=== PATIENT | male | born 1955 | race Caucasian/White ===

== ENCOUNTER 2019-06-11 05:57 | Inpatient (IN) ==
--- NOTE | 2019-05-26 16:01 | PAT Medication Instructions ---
Medication Instructions Date of Service May 26, 2019 Home Medications cholecalciferol (vitamin D3) [Vitamin D3] 10,000 unit PO BID glucos sul 5UYi-muj-upkve-C-Mn [Glucosamine Chondroitin] 3 cap PO DAILY ibuprofen 400 mg PO Q6H PRN gsnzq-fk-6-uly-wkk-fdsqhrp-ast [krill oil] 1 cap PO BID losartan [Cozaar] 100 mg PO QAM turmeric root extract 500 mg PO HS ASK your surgeon for instructions ibuprofen 400 mg PO Q6H PRN STOP taking 2 weeks before surgery glucos sul 8CCp-vdi-umuvp-C-Mn [Glucosamine Chondroitin] 3 cap PO DAILY bjodx-bd-4-ccc-dte-nkoydwm-ast [krill oil] 1 cap PO BID turmeric root extract 500 mg PO HS DO NOT take the morning of surgery cholecalciferol (vitamin D3) [Vitamin D3] 10,000 unit PO BID losartan [Cozaar] 100 mg PO QAM Other Notes If you have any questions please call us at [phone] or [phone] or [phone] or [phone]
--- NOTE | 2019-05-27 11:15 | Anesthesiology Consultation ---
Date of Service May 27, 2019 Assessment & Plan (1) Encounter for pre-operative examination: Chart Review Chart Review: Acceptable Risk for Surgery and Patient seen in Pre Admission Testing Teaching & Discussion Instructed NPO after midnight before surgery, except medications with 15 cc of water. Medication instructions provided according to the PAT guidelines. History Surgery Operation Date: 06/11/19 10:25 Proposed Procedures p L4-S1 Decompression and Fusion, Spinal Cord Monitoring - Kermit Nolan, Height/Weight Height: 5 ft 11 in Weight: 90.4 kg Allergies Allergy/AdvReac Type Severity Reaction Status Date / Time cefuroxime [From Ceftin] Allergy Mild LIPS TINGLE Verified 05/21/19 14:13 Medications Home Medications Medication Instructions Recorded Confirmed Last Taken cholecalciferol (vitamin D3) 10,000 unit PO BID 05/21/19 05/21/19 Unknown [Vitamin D3] glucos sul 0OFx-hxv-opjmp-C-Mn 3 cap PO DAILY 05/21/19 05/21/19 Unknown [Glucosamine Chondroitin] ibuprofen 400 mg PO Q6H PRN 05/21/19 05/21/19 Unknown lvijz-xg-6-lhr-qwv-npnhjuu-ast 1 cap PO BID 05/21/19 05/21/19 Unknown [krill oil] losartan [Cozaar] 100 mg PO QAM 05/21/19 05/21/19 Unknown turmeric root extract 500 mg PO HS 05/21/19 05/21/19 Unknown Past Medical History Medical History Chronic back pain TO BACK LEGS BILAT GERD (gastroesophageal reflux disease) HX Hypertension Exercise / Class Metabolic Activity II 4-5 Yardwork/Stairs/Walk up hill Past Family History Family History Father Family history of diabetes mellitus Family hx of colon cancer Past Surgical History Surgical History History of cardiac cath X 2-LAST ONE 10 YRS AGO-NO STENTS NEEDED History of colonoscopy X MULTIPLE History of esophagogastroduodenoscopy (EGD) History of repair of rotator cuff Hx of shoulder surgery R/L Past Anesthesia History No Hx of Anesthesia Complications and No Family Hx of Anesthesia Complications History of PONV No Hx of PONV and No Hx of Motion Sickness Social History Smoking Status: Former smoker Smoking cigarettes per day: Quit 20+ years ago Do You Dip or Chew Tobacco: No Hx Alcohol Use: Yes Alcohol type: beer and hard liquor alcohol intake frequency: a few times a week Hx Substance Use: No Review of Systems Pt denies any recent chest pain, shortness of breath, palpitations, cough, fever or URI. +Post nasal drip/sinus congestion, on Doxycycline currently from PCP. Denies travel. Physical Exam Vital Signs BP: 152/96 (pt states usually 130s/80s, takes it at home routinely) P: 76bpm SPO2: 98% RA T: 98.6 F R: 18 ENMT Mouth: + dental restorations (upper R side crown); no chipped teeth and no loose teeth Thyromental Distance: < 3.5 Finger Breadths (3) Mallampati Class: I Neck normal visual inspection and + facial hair (short full rose, pt amenable to shaving prior to surgery); neck extension not limited Respiratory normal respiratory effort Auscultation: lungs clear to auscultation bilaterally Cardiovascular Rate/Rhythm: regular rate and regular rhythm Heart Sounds: no murmur Vessels: no carotid bruit Extremities: no edema Testing Laboratory Results 05/27/19 11:25 05/27/19 11:25 PT 10.6 Seconds (9.0-12.0) 05/27/19 11:25 INR 1.0 (0.9-1.1) 05/27/19 11:25 APTT 28.5 Seconds (21.0-31.0) 05/27/19 11:25 Urine Color Yellow 05/27/19 Unknown Urine Appearance Clear (Clear) 05/27/19 Unknown Urine pH 5.0 (4.5-7.5) 05/27/19 Unknown Ur Specific [place] 1.017 (1.000-1.030) 05/27/19 Unknown Urine Protein Negative (Negative) 05/27/19 Unknown Urine Glucose (UA) Negative (Negative) 05/27/19 Unknown Urine Ketones Negative (Negative) 05/27/19 Unknown Urine Nitrite Negative (Negative) 05/27/19 Unknown Ur Leukocyte Esterase Negative (Negative) 05/27/19 Unknown Blood Type A Positive 05/27/19 11:25 Antibody Screen NEGATIVE 05/27/19 11:25 Electrocardiogram Date: 05/27/19 Findings: + NSR @ (69bpm) Chest X-Ray Date: 05/27/19 Findings: + NAD
--- NOTE | 2019-05-27 12:05 | XRay Report ---
XR chest Pre-admission PA/Lat CLINICAL HISTORY: pat preoperative COMPARISON STUDY: No previous studies for comparison. FINDINGS: The bones soft tissues and hemidiaphragms are normal. The cardiomediastinal silhouette is n ormal. The lungs are clear. The pulmonary vasculature is normal. IMPRESSION: Negative chest. ACT 112: Negative or not required by law. The above report was generated using voice recognition software. It may contain grammatical, syntax or spelling errors. Electronically signed by: Jose Faith M.D. 05/27/2019 12:03 PM
[2019-05-27 12:32] LABS: Appearance Urine Clear (Clear); Bilirubin Urine Negative (Negative); Blood Urine Negative (Negative); Color Urine Yellow; Glucose Urine UA Negative (Negative); Ketones Urine Negative (Negative); Leukocyte Esterase Urine Negative (Negative); Nitrite Urine Negative (Negative); Protein Urine Negative (Negative); Specific Gravity Urine 1.017 (1.000-1.030); Urobilinogen Urine Negative (Negative)
[2019-05-27 12:35] LABS: Basophils # (auto) 0.04 K/uL (0-0.2); Basophils % (auto) 0.6 %; Eosinophils # (auto) 0.14 K/uL (0-0.5); Eosinophils % (auto) 2.1 %; Hematocrit (blood only) 45.6 % (42-52); Hemoglobin 15.6 g/dL (14.0-18.0); Immature Granulocytes # (auto) 0.03 K/uL (0.00-0.02); Immature Granulocytes % (auto) 0.4 %; Lymphocytes # (auto) 2.11 K/uL (1.2-3.4); Lymphocytes % (auto) 31.5 %; Mean Corpuscular Hgb Conc 34.2 g/dL (32-36); Mean Corpuscular Volume 93.4 fL (80-100); Monocytes # (auto) 0.92 K/uL (0.11-0.59); Monocytes % (auto) 13.8 %; Neutrophils # (auto) 3.45 K/uL (1.4-6.5); Neutrophils % (auto) 51.6 %; Platelet Count 188 K/uL (130-400); RDW Coefficient of Variation 12.9 % (11.5-14.5); Red Blood Count 4.88 M/uL (4.7-6.1); White Blood Count 6.69 K/uL (4.8-10.8)
[2019-05-27 12:45] LABS: Partial Thromboplastin Time 28.5 Seconds (21.0-31.0); Prothrombin Time 10.6 Seconds (9.0-12.0)
[2019-05-27 12:48] LABS: BUN Creatinine Ratio 12.4 (10-20); Calcium 9.6 mg/dl (8.5-10.1); Creatinine Clr Calc Pharmacy 104.8 ml/min; Est GFR (African American) 108.5; Est GFR (Non-African American) 93.6; Potassium 4.3 mmol/L (3.5-5.1)
--- NOTE | 2019-05-28 07:11 | Electrocardiogram Report ---
Test Reason : Blood Pressure : / mmHG Vent. Rate : 069 BPM Atrial Rate : 069 BPM P-R Int : 154 ms QRS Dur : 094 ms QT Int : 390 ms P-R-T Axes : 062 -13 041 degrees QTc Int : 417 ms Normal sinus rhythm Normal ECG No previous ECGs available Confirmed by Leopoldo Arnold ([id number]) on 05/28/2019 7:11:33 AM Referred By: Kermit Nolan Confirmed By:Leopoldo Arnold
--- NOTE | 2019-06-09 09:01 | History & Physical Report ---
Date of Service June 09, 2019 Assessment & Plan (1) Neurogenic claudication due to lumbar spinal stenosis: This time the patient is a combination of previously existing degenerative lumbar spinal stenosis with now acute far lateral disc herniation. This as created significant neurologic decline with progressive weakness affecting the lower extremities. In light of his weakness we are recommending urgent decompression and fusion at the L4-5 L5-S1 levels. Hopefully surgery will halt his progressive neurologic decline and with time allow him to rebuild his strength and function thus avoiding long-term sequela. Present on Admission?: Yes History of Present Illness Chief Complaint: Back and bilateral leg pain and weakness. Primary Care Provider: Adolfo Bedoya This is a 64-year-old male presents with above-mentioned complaint. Began after a fall of last year. Is undergone extensive course of nonoperative care including several injections and physical therapy unfortunately he has noted continued progressive decline in status with inability to stand and ambulate. The pain does awaken him from sleep. Allergies Allergy/AdvReac Type Severity Reaction Status Date / Time cefuroxime [From Ceftin] Allergy Mild LIPS TINGLE Verified 05/21/19 14:13 Home Medications Home Medications Medication Instructions Recorded Confirmed Type cholecalciferol (vitamin D3) 10,000 unit PO BID 05/21/19 05/21/19 History [Vitamin D3] glucos sul 5JOg-jnr-puzfe-C-Mn 3 cap PO DAILY 05/21/19 05/21/19 History [Glucosamine Chondroitin] ibuprofen 400 mg PO Q6H PRN 05/21/19 05/21/19 History gncet-ub-5-zhd-igg-acuzmof-ast 1 cap PO BID 05/21/19 05/21/19 History [krill oil] losartan [Cozaar] 100 mg PO QAM 05/21/19 05/21/19 History turmeric root extract 500 mg PO HS 05/21/19 05/21/19 History Past Med/Surg History Medical History Chronic back pain TO BACK LEGS BILAT GERD (gastroesophageal reflux disease) HX Hypertension Surgical History History of cardiac cath X 2-LAST ONE 10 YRS AGO-NO STENTS NEEDED History of colonoscopy X MULTIPLE History of esophagogastroduodenoscopy (EGD) History of repair of rotator cuff Hx of shoulder surgery R/L Family History Father Family history of diabetes mellitus Family hx of colon cancer Social History Preferred Language: Estonian Communication Ability: Effective Geospatial Intelligence Analyst Required: No Beliefs That Will Affect Care: None Current Living Situation: Spouse Other Information That Helps Us Care for You: No Feels Safe at Home: Yes Safety Concerns: Feels Safe At This Time Smoking Status: Former smoker Cigarettes Per Day: Quit 20+ years ago ; Do You Dip or Chew Tobacco: No ; Second Hand Exposure: Yes (FATHER SMOKED) ; Hx Alcohol Use: Yes Alcohol type: beer and hard liquor Hx Substance Use: No Physical Exam Physical Exam: On exam patient is in obvious distress. He is able to stand for me with assistance only. He exhibits a 4/5 bilateral quadriceps plantar flexion dorsiflexion sensory is intact on the left lower extremity markedly diminished on the right. Results & Data Diagnostic Findings MRI lumbar spine does demonstrate evidence of severe spinal stenosis in the form of neuroforaminal disease at L4-5 and the right at L5-S1 with a comet far lateral disc herniation.
[~2019-06-11 05:57] MED LIST: SODIUM CHLORIDE 0.9% 250 ML IV PRN
[2019-06-11] MEDS ORDERED: ACETAMINOPHEN 500 MG TAB PO SCH (06:00)
[2019-06-11] MEDS ORDERED: LR 15ML/HR IV SCH (06:00)
[2019-06-11] MEDS ORDERED: CEFAZOLIN 2000MG 2,000 MG/15 ML SYR IV SCH (06:00)
[2019-06-11] MEDS ORDERED: CLINDAMYCIN 600 MG/54 ML BAG IV SCH (06:00)
[2019-06-11] MEDS ORDERED: CeleBREX 200 MG CAP PO SCH (06:00)
[2019-06-11] MEDS ORDERED: GABAPENTIN 600 MG DOSE PO SCH (06:00)
[2019-06-11] MEDS ORDERED: ONDANSETRON INJ 2 MG/ML 2 ML VIAL IV PRN ×2 (07:08→11:20)
[2019-06-11] MEDS ORDERED: ATROPINE SULFATE 0.1 MG/ML 10ML SYR IV PRN (07:08)
[2019-06-11] MEDS ORDERED: MEPERIDINE HCL 25 MG/ML CARP/VIAL IV PRN (07:08)
[2019-06-11] MEDS ORDERED: ePHEDrine sulfate 50 MG/ML AMP IV PRN (07:08)
[2019-06-11] MEDS ORDERED: HYDROmorphone INJ 1 MG/ML SYRINGE IV PRN ×2 (07:08→11:20)
[2019-06-11] MEDS ORDERED: LABETALOL HCL IV 5 MG/ML 20ML IV PRN (07:08)
[2019-06-11] MEDS ORDERED: fentaNYL citrate 100 MCG/2 ML VIAL IV PRN (07:08)
[2019-06-11] MEDS ORDERED: PHENYLEPHRINE 100MCG/ML 5ML SYR IV PRN (07:08)
[2019-06-11] MEDS ORDERED: fentaNYL citrate 100 MCG/2 ML VIAL ONE (07:11)
[2019-06-11] MEDS ORDERED: MIDAZOLAM HCL 1 MG/ML 2ML VIAL ONE (07:11)
[2019-06-11] MEDS ORDERED: BUPIVACAINE/EPINEPHRINE 0.5% MPF 1:200,000 10 ML VIAL ONE (07:11)
[2019-06-11] MEDS ORDERED: HYDROmorphone INJ 2 MG/ML SYR/VIAL ONE (07:11)
[2019-06-11] MEDS ORDERED: BACITRACIN INJ 50,000 UNIT VIAL ONE (07:12)
--- NOTE | 2019-06-11 07:29 | History & Physical Bridge Note ---
Date of Service June 11, 2019 History & Physical Bridge Note I have examined the patient, reviewed the History & Physical and in the interval since the performance of the History & Physical I have noted the following changes of clinical significance: no changes noted
[2019-06-11] MEDS ORDERED: CLINDAMYCIN 900 MG in DEXTROSE 5% 50 ML IV SCH (08:00)
[2019-06-11] MEDS ORDERED: PROPOFOL IV EMULSION 10 MG/ML 20 ML VIAL IV ONE (08:10)
[2019-06-11] MEDS ORDERED: LIDOCAINE HCL 2% 2 ML VIAL/AMP(20MG/ML) INFIL ONE (08:10)
[2019-06-11] MEDS ORDERED: ONDANSETRON INJ 2 MG/ML 2 ML VIAL ONE (08:10)
[2019-06-11] MEDS ORDERED: DEXAMETHASONE SOD INJ 4 MG/ML VIAL ONE (08:10)
[2019-06-11] MEDS ORDERED: NEOSTIGMINE METHYLSULFATE 5 MG/5 ML SYR ONE (08:10)
[2019-06-11] MEDS ORDERED: GLYCOPYRROLATE 0.2 MG/ML VIAL ONE (08:10)
[2019-06-11] MEDS ORDERED: ROCURONIUM BROMIDE 10 MG/ML 5 ML VIAL ONE (08:10)
[2019-06-11] MEDS ORDERED: FLOSEAL HEMOSTATIC MATRIX 10ML TOP ONE (08:48)
[2019-06-11] MEDS ORDERED: SUCCINYLCHOLINE CHLORIDE 20 MG/ML 10 ML VIAL ONE (09:05)
--- NOTE | 2019-06-11 09:55 | Fluoroscopy Report ---
FL lumbar spine 2-3V CLINICAL HISTORY: 64 years-old Male presenting with L4-S1 DECOMP/FUSION. TECHNIQUE: 2 fluoroscopic image(s) recorded as part of an intraoperative procedure. COMPARISON: None. FINDINGS/IMPRESSION: Posterior bilateral transpedicular screw and darshana fixation of L4-S1 with interbody spacer at L4-5 and laminectomies of L4 and L5. Normal anatomic alignment allowing for intervertebral disc height loss at L5-S1. Please see surgical report for further details. Fluoroscopy dosage (mGy): 12.09. Fluoroscopy time: 16.9 seconds. Number or time of high level fluoroscopy (HLF), digital spot, or digital subtraction images: 0. ACT 112: Negative or not required by law. Electronically signed by: Be Hunt M.D. 06/11/2019 9:54 AM
--- NOTE | 2019-06-11 09:58 | Operative Report ---
Post Operative Report Pre & Post Diagnosis Operation Date: 06/11/19 07:45 Pre-Op Diagnosis: Spinal Stenosis, Lumbar Region with Neurogenic Claudication Post-Op Diagnosis: Spinal Stenosis, Lumbar Region with Neurogenic Claudication I identified the patient and participated in the time-out.: Yes Procedure Operation Date: 06/11/19 07:45 Actual Procedures #1 lumbar decompression with bilateral medial facetectomies and foraminotomies L3-4, L4-5 and L5-S1. #2 posterior spinal fusion L4-5 L5-S1. #3 placement posterior instrumentation L4-5 L5-S1. #4 interbody fusion L4-5. #5 placement peek cage 12 x 26 mm at L for 5 per #6 placement locally harvested morselized autograft in the posterior lateral gutters. #7 placement infuse collagen sponge combined master graft in the posterior lateral gutters and ostial amp interbody space. Surgeon Kermit Nolan, Assistant Department Manager None Estimated Blood Loss 150 Findings Consistent with Post-Op Diagnosis Specimens None Indications This is a 64-year-old male who presents with marked decline in function and ability ambulate and progressive weakness to lower extremities subsequently elected undergo urgent decompression fusion. Description of Procedure Patient was met with identified informed consent obtained. Patient was then taken to the operative suite underwent intubation placed in a prone position the Danny table on top of the Liam frame. All bony prominences well-padded eyes inspected to ensure no external pressure placed upon the. This point the lumbar spine was prepped and draped in normal sterile fashion. Sharp dissection with the assistance of Bovie cautery was performed down to and exposing the lamina and transverse processes of L4-L5 and sacral ala bilaterally. From a caudal cephalad fashion complete laminectomy of L5 L4 and partial laminectomy of L3 is performed including bilateral medial facetectomies and foraminotomies addressing severe stenosis. Pedicle screws were then placed in L4-L5 and S1 levels bilaterally with assistance of fluoroscopy and the proper sized darshana placed. By way of a transforaminal approach on the right complete discectomy of L4-5 was performed endplates curetted to subcortical being bone and a 12 x 26 mm peek cage with osteo-bone graft tapped in position. The rods were then locked in final position bilaterally. The transverse processes of L4-L5 and sacral ala burred to subcortical bleeding bone. Infuse collagen sponge master graft local autograft was placed in the posterior lateral gutters. 15 round ZAC drain inserted. Incision was then closed with 1 Vicryl in the fascia 2-0 Vicryl subcutaneously and 4 Monocryl for final skin closure. Steri-Strip sterile dres sings placed. Patient will continue PACU stable condition. Please note spinal cord monitoring was utilized that the procedure no changes noted. I attest to the content of the Intraoperative Record and any orders documented therein. Any exceptions are noted below.
--- NOTE | 2019-06-11 10:47 | Anesthesiology Progress Note ---
Date of Service June 11, 2019 Anesthesia Post Procedure Vital Signs Vital Signs: Temp Pulse Pulse Resp BP Pulse Ox 06/11/19 10:35 82 12 163/82 H 97 06/11/19 10:25 82 12 173/80 H 100 06/11/19 10:15 88 21 136/88 100 06/11/19 10:07 36.5 C 92 H 12 172/96 H 99 06/11/19 06:37 36.8 C 80 18 149/96 H 97 Pain Intensity Lower Back: Pain Intensity: 0 Transfer of Care Handoff Completed per policy Notes Mental Status: alert / awake / arousable Patient Amnestic to Procedure: Yes Nausea / Vomiting: adequately controlled Pain: adequately controlled Airway Patency, RR, SpO2: stable & adequate BP & HR: stable & adequate Hydration State: stable & adequate Anesthetic Complications: no major complications apparent and Pt Satisfied with anesthetic care
[2019-06-11] MEDS ORDERED: ALUMINUM/MAGNESIUM SUSP 30 ML UDC PO PRN (11:20)
[2019-06-11] MEDS ORDERED: METOCLOPRAMIDE HCL INJ 5 MG/ML 2 ML VIAL IV PRN (11:20)
[2019-06-11] MEDS ORDERED: PROMETHAZINE HCL 12.5 MG in SODIUM CHLORIDE 0.9% 50 ML IV PRN (11:20)
[2019-06-11] MEDS ORDERED: OXYCODONE HCL IR 5 MG TAB (IMMEDIATE RELEASE) PO PRN (11:20)
[2019-06-11] MEDS ORDERED: DO NOT ADMINISTER FLU VACCINE PRN (11:20)
[2019-06-11] MEDS ORDERED: HYDROmorphone INJ 0.5 MG/0.5 ML SYR IV PRN (11:20)
[2019-06-11] MEDS ORDERED: DO NOT ADMINISTER PNEUMOCOCCAL VACCINE PRN (11:20)
[2019-06-11] MEDS ORDERED: TRAMADOL HCL 50 MG TABLET PO PRN (11:20)
[2019-06-11] MEDS ORDERED: bisacodyL 10 MG SUPP PR PRN (11:20)
[2019-06-11] MEDS ORDERED: MAGNESIUM HYDROXIDE SUSP 30 ML UDC PO PRN (11:20)
[2019-06-11] MEDS ORDERED: LORazepam 0.5 MG/1 ML VIAL IV PRN (11:20)
[2019-06-11] MEDS ORDERED: LORazepam 0.5 MG TAB PO PRN (11:20)
[2019-06-11] MEDS ORDERED: SOD PHOSPHATE/SOD BIPHOSPHATE ENEMA 132 ML BTL PR PRN (11:20)
[2019-06-11] MEDS ORDERED: ACETAMINOPHEN 1,000 MG/100 ML VIAL IV PRN (11:20)
[2019-06-11] MEDS ORDERED: FAMOTIDINE 20 MG TAB PO PRN (11:20)
[2019-06-11] MEDS ORDERED: ONDANSETRON 4 MG OD TAB PO PRN (11:20)
[2019-06-11] MEDS: LACTATED RINGER'S 1,000 ML IV SCH ×2 (11:36→21:51)
[2019-06-11] MEDS: [UNRECOGNIZED DRUG - REMARK] SCH ×2 (11:37→14:26)
[2019-06-11] MEDS: KETOROLAC TROMETHAMINE 15 MG/ML VIAL IV SCH ×2 (11:39→17:06)
[2019-06-11] MEDS: CLINDAMYCIN 600 MG in DEXTROSE 5% 50 ML IV SCH (16:06)
[2019-06-11] MEDS: DOCUSATE SODIUM/SENNA 50/8.6MG TAB PO SCH (20:40)
[2019-06-11] MEDS ORDERED: NON-FORMULARY MEDICATION (Krill-Om-3-Dha-Epa-Phospho-Ast [Krill Oil] 1 CAP) PO SCH (21:00)
[2019-06-12] MEDS: [UNRECOGNIZED DRUG - REMARK] SCH ×3 (00:12→16:28)
[2019-06-12] MEDS: CLINDAMYCIN 600 MG in DEXTROSE 5% 50 ML IV SCH (00:13)
[2019-06-12] MEDS: KETOROLAC TROMETHAMINE 15 MG/ML VIAL IV SCH ×2 (00:13→05:30)
[2019-06-12 05:48] LABS: Basophils # (auto) 0.02 K/uL (0-0.2); Basophils % (auto) 0.2 %; Eosinophils # (auto) 0.04 K/uL (0-0.5); Eosinophils % (auto) 0.3 %; Hemoglobin 11.8 g/dL (14.0-18.0); Immature Granulocytes # (auto) 0.04 K/uL (0.00-0.02); Immature Granulocytes % (auto) 0.3 %; Lymphocytes # (auto) 2.18 K/uL (1.2-3.4); Mean Corpuscular Hemoglobin 30.6 pg (25-34); Mean Corpuscular Hgb Conc 33.7 g/dL (32-36); Mean Corpuscular Volume 90.7 fL (80-100); Mean Platelet Volume 11.3 fL (7.4-10.4); Monocytes # (auto) 1.53 K/uL (0.11-0.59); Monocytes % (auto) 13.3 %; Neutrophils # (auto) 7.68 K/uL (1.4-6.5); Neutrophils % (auto) 66.9 %; Platelet Count 223 K/uL (130-400); RDW Coefficient of Variation 12.7 % (11.5-14.5); RDW Standard Deviation 41.7 fL (36.4-46.3); Red Blood Count 3.86 M/uL (4.7-6.1); White Blood Count 11.49 K/uL (4.8-10.8)
[2019-06-12] MEDS ORDERED: CLINDAMYCIN PHOS 900 MG/6 ML VIAL IV SCH (06:00)
[2019-06-12] MEDS ORDERED: POLYETHYLENE (MIRALAX) 17 GM PACK PO SCH (06:00)
[2019-06-12 06:06] LABS: BUN Creatinine Ratio 18.9 (10-20); Calcium 8.7 mg/dl (8.5-10.1); Creatinine Clr Calc Pharmacy 85.7 ml/min; Est GFR (African American) 99.6; Est GFR (Non-African American) 85.9
[2019-06-12] MEDS: LOSARTAN POTASSIUM 50 MG TAB PO SCH (08:07)
[2019-06-12] MEDS: LACTATED RINGER'S 1,000 ML IV SCH ×2 (08:52→15:00)
[2019-06-12] MEDS: ACETAMINOPHEN 500 MG TAB PO PRN (10:21)
--- NOTE | 2019-06-12 10:36 | Orthopedic Progress Note ---
Date of Service June 12, 2019 Assessment & Plan (1) Neurogenic claudication due to lumbar spinal stenosis: At this time we will continue physical therapy monitor his ZAC output anticipate discharge home in the next few days. Present on Admission?: Yes Admission and Anticipated Discharge Date Admission Date: June 11, 2019 Subjective Back pain is controlled leg pain and weakness is markedly improved. He was ambulating last night. Physical Exam Physical Exam: Patient is good strength testing appears comfortable. Results & Data ([facility]) Vital Signs (Past 12 Hours) Vital Signs Temp Pulse Resp BP Pulse Ox 06/12/19 07:02 36.6 C 70 20 133/78 98 06/12/19 03:15 36.7 C 67 16 119/76 97 06/11/19 23:52 36.6 C 67 18 117/69 96
[2019-06-12] MEDS ORDERED: Nursing to Pharmacy Communication ONE (11:05)
[2019-06-12] MEDS: DOCUSATE SODIUM/SENNA 50/8.6MG TAB PO SCH (20:00)
[2019-06-13] MEDS: [UNRECOGNIZED DRUG - REMARK] SCH ×2 (00:10→07:59)
[2019-06-13] MEDS: ACETAMINOPHEN 500 MG TAB PO PRN (07:59)
[2019-06-13] MEDS: LOSARTAN POTASSIUM 50 MG TAB PO SCH (08:36)
[2019-06-13] MEDS ORDERED: DEXAMETHASONE SOD PHOSPHATE 8 MG in SYRINGE 0 ML IV SCH (09:00)
--- NOTE | 2019-06-13 10:29 | Discharge Summary ---
Date of Service June 13, 2019 Admission HPI Per Admitting Provider This is a 64-year-old male presents with above-mentioned complaint. Began after a fall of last year. Is undergone extensive course of nonoperative care including several injections and physical therapy unfortunately he has noted continued progressive decline in status with inability to stand and ambulate. The pain does awaken him from sleep. Principal Diagnosis Lumbar spinal stenosis with neurogenic claudication Discharge Data Allergies Allergy/AdvReac Type Severity Reaction Status Date / Time cefuroxime [From Ceftin] Allergy Mild LIPS TINGLE Verified 06/11/19 06:30 Procedures Performed Operation Date: 06/11/19 07:45 Actual Procedures p L4-S1 Decompression and Fusion, Spinal Cord Monitoring, Interbody at L4-L5(Not Applicable) - Kermit Nolan DO Ordered Studies 06/11/19 07:45 FL fluoroscopy <1hr Routine [place] lumbar spine 2-3V Routine Hospital Course (1) Neurogenic claudication due to lumbar spinal stenosis: Patient underwent multilevel lumbar decompression fusion tolerated this well was taken the orthopedic for postoperative. Postop day 1 he was up ambulating leg pain and strength improving. Rest the postop day #2 he was standing and ambulating had good strength testing excellent posture. ZAC drain decreasing appropriately. Subsequently discharged home. Discharge orders and instructions from the chart for further review. Total Time Total Time Spent Total Time Spent (In Minutes): 20 minutes Discharge Plan Discharge Items Patient Disposition: Home - Self-Care Reason For Visit: Spinal Stenosis, Lumbar Region with Neurogenic Discharge Diagnosis: Lumbar spinal stenosis with neurogenic claudication and strength deficits Activity: As commented below Non-emergency contact: Primary Care Provider Call non-emergency contact if: you have any medication questions Follow-up/Referrals: Adolfo Bedoya M.D. [Primary Care Provider] - Diet: Regular Addtl Attending Provider Instructions: ACTIVITY RECOMMENDATIONS: SELF CARE INSTRUCTIONS AFTER THORACIC/LUMBAR FUSIONS 1. You may walk to your tolerance. It is good exercise for your legs and back. Expect some back and intermittent leg aches and pains. 2. You may perform "counter-top" level activities (make a sandwich, tasha with a project, etc.). 3. No bending or lifting of more than 10 pounds or back twisting of any nature (roll like a log when turning in bed). 4. You may ride in a car for 20-30 minutes at a time. No driving until after your first visit with your doctor. 5. Frequent changes of position and restricting sitting to 30 minutes at a time will help limit the amount of back spasms and stiffness you may experience. 6. You may discontinue the use of ambulatory aids (cane, crutches, etc.) once your strength and confidence allow. 7. You may degreasing solution reclaimer the shower and let water strike your incision when you arrive home at least once daily. Do not take a tub bath, sit in a hot tub or go into a swimming pool until after your first recheck in the office. SPECIAL CARE INSTRUCTIONS: VERY IMPORTANT TO READ AND REVIEW A. Your surgical incision has been closed with a cosmetic suture under the skin that will dissolve in about 6 weeks. In 14 days, you can use a pair of clean scissors and cut the suture that is left outside of the skin at the ends of your incision. 1. The small skin tapes can be removed 7 days after surgery if they have not fallen off by that point. 2. You may keep the wound open to air as much as possible to promote healing after post-op day number 5 unless told otherwise by your doctor. 3. If you think the wound looks like it is becoming infected (redness or worsening drainage) and/or you are experiencing fever, chill or worsening back pain and muscle spasms, contact the office so that we may evaluate you as soon as possible. B. Complications are uncommon, but please contact us if you have any signs or symptoms of: 1. wound infection (fever higher than 102.5 degrees F, redness, separation of wound, drainage, or increasing pain from the incision) 2. blood clots in legs (pain, swelling, redness and warmth in legs) 3. urinary tract infection (fever higher than 102.5 degrees F, burning upon urination or increased frequency of urination) 4. nerve problems (inability to walk on your toes or heels, numbness, loss of bowel or bladder control) 5. any other symptoms that concern you C. Please call the office at if you have any concerns or questions about your operation or recovery. D. No smoking! Smoking drastically decreases the chance of a solid fusion. E. Do not take any anti-inflammatory medications (Indocin, Advil, Motrin, Aspirin, Naprosyn, etc.) as these may inhibit the chance of a solid fusion. Tylenol is okay to take for pain. MANAGING PAIN AFTER SPINAL SURGERY 1. Narcotic medication is intended for short-term use and will be provided for surgical pain. Surgical pain usually lasts for a period of 4-6 weeks. Narcotic medication includes Percocet, Vicodin, Darvocet, Tylenol #3 or Lortab. 2. Longer-term pain is more appropriately treated with non-narcotic medication such as Tylenol ES. 3. Muscle spasm is not appropriately treated with narcotics. Muscle relaxers such as Soma, Flexeril or Skelaxin can be used along with Tylenol ES. 4. Remember that we all live with some "aches and pains". This is not unusual or uncommon after an injury or as we get older. a. Back pain is expected and may include muscle spasms for 4 to 6 weeks after surgery. The pain should gradually improve. If the pain worsens for no apparent reason, please contact the office. b. Intermittent leg pain may also be experienced and should not be concerned about unless it worsens for no apparent reason. If so, please contact the office. 5. We will provide appropriate medication within the normal guidelines of their prescribed use. We will also be very cautious and aware of potential abuse and extended duration of patients' medication needs. a. Pain medications are for your comfort and to assist with sleep and rest so that the tissue can heal. They are not provided in order to return to normal activity and should not be used through the day. To do so or worsening pain at night can result from ongoing tissue damage and development of tolerance to the prescribed medicine. 6. Please allow 2-3 days to process refills. Prescriptions will not be mailed but must be picked up at the office. FOLLOW UP VISIT: Keep your scheduled follow-up appointment. Any questions, please call the office at . Pending Studies at Discharge: No Stand-Alone Forms: [facility], Smoking Cessation Medications and DC Order Prescriptions: New tramadol 50 mg tablet 50 mg PO Q6H PRN (Reason: pain, moderate) Qty: 20 RF: 0 oxycodone 5 mg tablet 5 mg PO Q6H PRN (Reason: pain, severe) Qty: 20 RF: 0 Continued losartan [Cozaar] 100 mg Tablet 100 mg PO QAM RF: 0 cholecalciferol (vitamin D3) [Vitamin D3] 125 mcg (5,000 unit) Tablet 10,000 unit PO BID RF: 0 turmeric root extract 500 mg Capsule 500 mg PO HS RF: 0 jvxeg-ws-0-dhx-cgl-fwnidih-ast [krill oil] 1,406-037-85-80 mg Capsule 1 cap PO BID RF: 0 Glucosamine Chondroitin 550-30-1 mg Capsule 3 cap PO DAILY RF: 0 Discontinued ibuprofen 200 mg Capsule 400 mg PO Q6H PRN (Reason: Pain) RF: 0 Discharge Orders: Discharge Order (Routine); Ordered 06/13/19 Ordered By: Kermit Nolan Admission Data Admit Date/Time: 06/11/19 10:11 Attending Provider: Kermit Nolan Admit Provider: Kermit Nolan Primary Care Provider: Adolfo Bedoya
== END 2019-06-13 15:50 | disposition home or self-care (01) | DRG 455 ==
LOC: ASU 05:57 → 3E 10:11

== ENCOUNTER 2020-06-09 11:05 | Inpatient (IN) ==
--- NOTE | 2020-05-24 13:18 | PAT Medication Instructions ---
Medication Instructions Date of Service May 24, 2020 Home Medications Glucosamine Chondroitin 3 cap PO DAILY cholecalciferol (vitamin D3) [Vitamin D3] 10,000 unit PO BID tlvgz-pd-3-iit-iiv-rmboirf-ast [krill oil] 1 cap PO BID losartan [Cozaar] 100 mg PO QAM turmeric root extract 500 mg PO HS STOP taking 2 weeks before surgery (or as soon as possible if surgery is within 2 weeks) Glucosamine Chondroitin 3 cap PO DAILY bydsp-nq-5-cnb-fdv-wvtdrse-ast [krill oil] 1 cap PO BID turmeric root extract 500 mg PO HS DO NOT take the morning of surgery cholecalciferol (vitamin D3) [Vitamin D3] 10,000 unit PO BID losartan [Cozaar] 100 mg PO QAM Take evening before surgery cholecalciferol (vitamin D3) [Vitamin D3] 10,000 unit PO BID Other Notes If you have any questions please call us at [phone] or [phone] or [phone] or [phone]
--- NOTE | 2020-05-25 11:02 | Anesthesiology Consultation ---
Date of Service May 25, 2020 Assessment & Plan (1) Encounter for pre-operative examination: - COVID screening: Per assessment on 05/17: Travel screen negative, no known COVID-19 positive contacts or current COVID-19 related symptoms. Surgeon arranging preop COVID testing. Awaiting results. - S/P L4-S1 decompression/fusion: 06/11/19: Grade view 1, MAC 2.5, ETT 7.5 at [facility] Chart Review Chart Review: Acceptable Risk for Surgery and Patient seen in Pre Admission Te sting Teaching & Discussion Pre-Anesthesia Teaching/Discussion Notes: Instructed NPO after midnight before surgery,except medications with 15 cc of water. Medication instructions provided according to the PAT guidelines. History Surgery Operation Date: 06/09/20 13:00 Proposed Procedures p L3-L4 Decompression Fusion, L4-S1 Hardware Removal, Spinal Cord Monitoring - Kermit Nolan DO Height/Weight Height: 5 ft 11 in Weight: 90.5 kg Allergies Allergy/AdvReac Type Severity Reaction Status Date / Time cefuroxime [From Ceftin] Allergy Mild Lip Verified 05/25/20 11:02 tingling Medications Home Medications Medication Instructions Recorded Confirmed Last Taken Glucosamine Chondroitin 3 cap PO DAILY 05/21/19 05/17/20 05/27/19 08:00 cholecalciferol (vitamin D3) 10,000 unit PO BID 05/21/19 05/17/20 06/10/19 08:00 [Vitamin D3] [id number] 1 cap PO BID 05/21/19 05/17/20 05/27/19 08:00 [krill oil] losartan [Cozaar] 100 mg PO QAM 05/21/19 05/17/20 06/10/19 08:00 turmeric root extract 500 mg PO HS 05/21/19 05/17/20 05/27/19 08:00 Past Medical History Medical History Chronic back pain B/L LE radiation GERD (gastroesophageal reflux disease) hx Hypertension Exercise / Class Metabolic Activity II 4-5 Yardwork/Stairs/Walk up hill Past Family History Family History Father Family history of diabetes mellitus Family hx of colon cancer Past Surgical History Surgical History History of cardiac cath x2 (most recent 10+ years ago) > no stents History of colonoscopy Multiple History of esophagogastroduodenoscopy (EGD) History of lumbar fusion L4-S1 decompression/fusion: 06/11/19: Grade view 1, MAC 2.5, ETT 7.5 at [facility] History of repair of rotator cuff Hx of shoulder surgery R/L Status post right foot surgery Past Anesthesia History No Hx of Anesthesia Complications and No Family Hx of Anesthesia Complications History of PONV No Hx of PONV and No Hx of Motion Sickness Social History Smoking Status: Former smoker Smoking cigarettes per day: Quit 20+ years ago Do You Dip or Chew Tobacco: No Hx Alcohol Use: Yes Alcohol type: beer and hard liquor alcohol intake frequency: a few times a week Hx Substance Use: No substance use type: does not use Review of Systems No snoring. Patient denies chest pain, shortness of breath, dyspnea on exertion, joint pain, reflux, cough, wheezing, palpitations. Physical Exam Vital Signs VITALS BP 137/84 P 73 TEMP 98.7 SP02 98%Ra RESP 18 PHYSICAL Full neck and c-spine range of motion. Full TMJ range of motion. TMD 3.5 finger breaths Mallampati Score 2 Dentition: intact, crown on upper right side Lungs: clear throughout to auscultation Cardiac: regular rate and rhythm, no murmurs noted Spine: normal Carotid arteries: negative bruit Extremities: no edema Trimmed rose Testing Laboratory Results 05/25/20 11:22 05/25/20 11:22 PT 10.3 Seconds (9.0-12.0) 05/25/20 11: INR 1.0 (0.9-1.1) 05/25/20 11:22 APTT 25.3 Seconds (21.0-31.0) 05/25/20 11:22 Urine Color Yellow 05/25/20 Unknown Urine Appearance Clear (Clear) 05/25/20 Unknown Urine pH 5.0 (4.5-7.5) 05/25/20 Unknown Ur Specific [place] 1.015 (1.000-1.030) 05/25/20 Unknown Urine Protein Negative (Negative) 05/25/20 Unknown Urine Glucose (UA) Negative (Negative) 05/25/20 Unknown Urine Ketones Negative (Negative) 05/25/20 Unknown Urine Nitrite Negative (Negative) 05/25/20 Unknown Ur Leukocyte Esterase Negative (Negative) 05/25/20 Unknown Blood Type A Positive 05/25/20 11:22 Antibody Screen NEGATIVE 05/25/20 11:22 Electrocardiogram Date: 05/25/20 Findings: + NSR @ (70) Chest X-Ray Date: 05/25/20 Findings: + NAD
--- NOTE | 2020-05-25 11:54 | XRay Report ---
XR chest Pre-admission PA/Lat CLINICAL HISTORY: Preoperative chest COMPARISON STUDY: 05/27/2019 FINDINGS: The cardiac and mediastinal contours are normal. There is no evidence of focal pulmonary co nsolidation. There is no evidence of failure. No pleural effusions are visualized.[ IMPRESSION: No active disease in the chest. ACT 112: Negative or not required by law. Electronically signed by: Anjum Pina M.D. 05/25/2020 11:52 AM
[2020-05-25 13:20] LABS: Basophils # (auto) 0.03 K/uL (0-0.2); Basophils % (auto) 0.3 %; Eosinophils # (auto) 0.18 K/uL (0-0.5); Hematocrit (blood only) 44.3 % (42-52); Hemoglobin 15.1 g/dL (14.0-18.0); Immature Granulocytes # (auto) 0.05 K/uL (0.00-0.02); Immature Granulocytes % (auto) 0.6 %; Mean Corpuscular Hemoglobin 30.8 pg (25-34); Mean Corpuscular Hgb Conc 34.1 g/dL (32-36); Mean Corpuscular Volume 90.2 fL (80-100); Mean Platelet Volume 11.9 fL (7.4-10.4); Monocytes # (auto) 0.94 K/uL (0.11-0.59); Monocytes % (auto) 10.5 %; Neutrophils # (auto) 5.17 K/uL (1.4-6.5); Neutrophils % (auto) 57.6 %; Platelet Count 242 K/uL (130-400); RDW Coefficient of Variation 13.3 % (11.5-14.5); RDW Standard Deviation 43.6 fL (36.4-46.3); Red Blood Count 4.91 M/uL (4.7-6.1); White Blood Count 8.97 K/uL (4.8-10.8)
[2020-05-25 13:26] LABS: Appearance Urine Clear (Clear); Bilirubin Urine Negative (Negative); Blood Urine Negative (Negative); Color Urine Yellow; Glucose Urine UA Negative (Negative); Ketones Urine Negative (Negative); Leukocyte Esterase Urine Negative (Negative); Nitrite Urine Negative (Negative); Protein Urine Negative (Negative); Specific Gravity Urine 1.015 (1.000-1.030); Urobilinogen Urine Negative (Negative)
[2020-05-25 13:41] LABS: Partial Thromboplastin Time 25.3 Seconds (21.0-31.0); Prothrombin Time 10.3 Seconds (9.0-12.0)
[2020-05-25 13:48] LABS: BUN Creatinine Ratio 12.5 (10-20); Calcium 9.3 mg/dl (8.5-10.1); Creatinine Clr Calc Pharmacy 106.1 ml/min; Est GFR (African American) 108.9; Est GFR (Non-African American) 93.9
--- NOTE | 2020-05-26 06:06 | Electrocardiogram Report ---
Test Reason : Blood Pressure : / mmHG Vent. Rate : 070 BPM Atrial Rate : 070 BPM P-R Int : 162 ms QRS Dur : 094 ms QT Int : 392 ms P-R-T Axes : 072 -16 064 degrees QTc Int : 423 ms Normal sinus rhythm Normal ECG When compared with ECG of 27-MAY-2019 11:31, No significant change was found Confirmed by Leopoldo Arnold ([id number]) on 05/26/2020 6:05:25 AM Referred By: Kermit Nolan Confirmed By:Leopoldo Arnold
[~2020-06-09 11:05] MED LIST changes: +ACETAMINOPHEN 500 MG TAB PO SCH; +ATROPINE SULFATE 0.1 MG/ML 10ML SYR IV PRN; +CeleBREX 200 MG CAP PO SCH; +GABAPENTIN 600 MG DOSE PO SCH; +GLYCOPYRROLATE 0.2 MG/ML VIAL ONE; +HYDROmorphone INJ 1 MG/ML SYRINGE IV PRN; +LABETALOL HCL IV 5 MG/ML 20ML IV PRN; +LIDOCAINE HCL 2% 2 ML VIAL/AMP(20MG/ML) INFIL ONE; +LR 15ML/HR IV SCH; +MEPERIDINE HCL 25 MG/ML CARP/VIAL IV PRN; +MIDAZOLAM HCL 1 MG/ML 2ML VIAL ONE; +NEOSTIGMINE METHYLSULFATE 1 MG/ML 10ML VIAL ONE; +ONDANSETRON INJ 2 MG/ML 2 ML VIAL IV PRN; +ONDANSETRON INJ 2 MG/ML 2 ML VIAL ONE; +PHENYLEPHRINE 100MCG/ML 5ML SYR IV PRN; +PROPOFOL IV EMULSION 10 MG/ML 20 ML VIAL IV ONE; +ROCURONIUM BROMIDE 10 MG/ML 5 ML VIAL IV ONE; -SODIUM CHLORIDE 0.9% 250 ML IV PRN; +ceFAZolin 2000MG 2,000 MG/15 ML SYR IV SCH; +ePHEDrine sulfate 50 MG/ML AMP IV PRN; +fentaNYL citrate 100 MCG/2 ML VIAL IV PRN; +fentaNYL citrate 100 MCG/2 ML VIAL ONE
--- NOTE | 2020-06-09 12:41 | History & Physical Bridge Note ---
Date of Service June 09, 2020 History & Physical Bridge Note I have examined the patient, reviewed the History & Physical and in the interval since the performance of the History & Physical I have noted the following changes of clinical significance: no changes noted
--- NOTE | 2020-06-09 12:42 | History & Physical Report ---
Date of Service June 09, 2020 Assessment & Plan (1) Neurogenic claudication due to lumbar spinal stenosis: Admission and Anticipated Discharge Date Admission Date: L3-L4 decompression fusion, L4-S1 hardware removal History of Present Illness Chief Complaint: Back and bilateral leg pain Primary Care Provider: Adolfo Bedoya This is a 65-year-old male well-known to me the presents with marked decline in status with consistent back and bilateral leg pain. Failing course of nonoperative care is here for surgical invention. Allergies Allergy/AdvReac Type Severity Reaction Status Date / Time cefuroxime [From Ceftin] Allergy Mild Lip Verified 06/09/20 11:46 tingling Home Medications Medication Instructions Recorded Confirmed Type Glucosamine Chondroitin 3 cap PO DAILY 05/21/19 06/09/20 History cholecalciferol (vitamin D3) 10,000 unit PO BID 05/21/19 06/09/20 History [Vitamin D3] [id number]-[id number]-[id number]-ast 1 cap PO BID 05/21/19 06/09/20 History [krill oil] losartan [Cozaar] 100 mg PO QAM 05/21/19 06/09/20 History turmeric root extract 500 mg PO HS 05/21/19 06/09/20 History Past Med/Surg History Medical History Chronic back pain B/L LE radiation GERD (gastroesophageal reflux disease) hx Hypertension Surgical History History of cardiac cath x2 (most recent 10+ years ago) > no stents History of colonoscopy Multiple History of esophagogastroduodenoscopy (EGD) History of lumbar fusion L4-S1 decompression/fusion: 06/11/19: Grade view 1, MAC 2.5, ETT 7.5 at [facility] History of repair of rotator cuff Hx of shoulder surgery R/L Status post right foot surgery Family History Father Family history of diabetes mellitus Family hx of colon cancer Social History Smoking Status: Former smoker Cigarettes Per Day: Quit 20+ years ago; Second Hand Exposure: No; Do You Dip or Chew Tobacco: No; Tobacco Cessation Education Requested by Patient: No Hx Alcohol Use: Yes Alcohol type: beer and hard liquor Hx Substance Use: No Preferred Language: Romanian Communication Ability: Effective 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
[2020-06-09] MEDS ORDERED: HYDROmorphone INJ 2 MG/ML SYR/VIAL IV PRN (12:43)
[2020-06-09] MEDS ORDERED: ONDANSETRON INJ 2 MG/ML 2 ML VIAL IV PRN ×2 (12:43→17:26)
[2020-06-09] MEDS ORDERED: ePHEDrine sulfate 50 MG/ML AMP IV PRN (12:43)
[2020-06-09] MEDS ORDERED: PROMETHAZINE HCL 12.5 MG in SODIUM CHLORIDE 0.9% 50 ML IV PRN ×2 (12:43→17:26)
[2020-06-09] MEDS ORDERED: ATROPINE SULFATE 0.1 MG/ML 10ML SYR IV PRN (12:43)
[2020-06-09] MEDS ORDERED: fentaNYL citrate 100 MCG/2 ML VIAL IV PRN (12:43)
[2020-06-09] MEDS ORDERED: CLINDAMYCIN 600 MG/54 ML D5W IV ONE (12:53)
[2020-06-09] MEDS ORDERED: HYDROmorphone INJ 2 MG/ML SYR/VIAL ONE (12:56)
[2020-06-09] MEDS ORDERED: SODIUM CHLORIDE 0.9% INJ 10 ML VIAL ONE (12:56)
[2020-06-09] MEDS ORDERED: LARYING-O-JET KIT (LTA) ONE (12:56)
[2020-06-09] MEDS ORDERED: BACITRACIN INJ 50,000 UNIT VIAL ONE (13:08)
[2020-06-09] MEDS ORDERED: BUPIVACAINE/EPINEPHRINE 0.5% MPF 1:200,000 30 ML VIAL ONE (13:08)
[2020-06-09] MEDS ORDERED: CLINDAMYCIN 600 MG/54 ML BAG IV SCH (13:15)
[2020-06-09] MEDS ORDERED: ONDANSETRON INJ 2 MG/ML 2 ML VIAL ONE (14:12)
[2020-06-09] MEDS ORDERED: DEXAMETHASONE SOD INJ 4 MG/ML VIAL ONE (14:12)
[2020-06-09] MEDS ORDERED: FLOSEAL HEMOSTATIC MATRIX 10ML TOP ONE (14:29)
[2020-06-09] MEDS ORDERED: PHENYLEPHRINE 100MCG/ML 5ML SYR ONE (14:45)
[2020-06-09] MEDS ORDERED: ALBUMIN HUMAN 5% 12.5 GM/250 ML VIAL IV ONE (14:58)
[2020-06-09] MEDS ORDERED: ePHEDrine sulfate 50 MG/ML SYR ONE (15:00)
--- NOTE | 2020-06-09 15:25 | Operative Report ---
Post Operative Report Pre & Post Diagnosis Operation Date: 06/09/20 13:00 Pre-Op Diagnosis: Spinal Stenosis, Lumbar Region with Neurogenic Claudication Post-Op Diagnosis: Spinal Stenosis, Lumbar Region with Neurogenic Claudication I identified the patient and participated in the time-out.: Yes Procedure Operation Date: 06/09/20 13:00 Actual Procedures #1 removal of hardware L4-S1. #2 exploration of fusion 4.s1.#3 lumbar decompression with bilateral medial facetectomies and foraminotomies L2-3 and L3-4. #4 posterior spinal fusion L3-4. #5 placement of posterior instrumentation L3-S1. #6 interbody fusion L3-L4. Per #7 placement peek cage 12 x 26 mm at L3-L4. #8 placement locally harvested morselized autograft in the posterior gutters. #9 placement I factor interbody space and posterior lateral gutters. Surgeon Kermit Nolan, Speech Pathology Assistant Fidel Batista Estimated Blood Loss 550 Findings Consistent with Post-Op Diagnosis Specimens None Indications This is a 65-year-old male well-known to me the presents with above-mentioned diagnosis after failing course of nonoperative care is here for the above-mentioned seizure. Description of Procedure Patient was met with identified informed consent obtained. Patient was then taken to the operative suite underwent a patient placed in a prone position the Danny table top Liam frame. All bony prominences well-padded eyes inspected to ensure no external pressure placed upon the. This point the lumbar spine is prepped and draped in a sterile fashion. Sharp dissection with the assistance of Bovie cautery was performed down to and exposing the lamina and transverse processes of L3 and the instrumentation L4-L5 and S1 levels bilaterally. I then proceeded move the end caps and rods bilaterally explored the fusion mass noting to be mature and intact. And then performed a complete laminectomy of L3 part ial laminectomy of L2 including bilateral medial facetectomies and foraminotomies addressing severe spinal stenosis. Pedicle screws were then placed in L3 and the proper sized darshana placed from L3-S1. By way of a transfemoral approach a left complete discectomy of L3-4 was performed endplates curetted to subcortical bleeding bone and a 12 x 26 mm peek cage filled I factor tapped in position. The rods were then locked in final position bilaterally. Transverse processes of L3 and L4 burred to subcortical bleeding bone. Locally harvested morselized autograft combined with I factor was then placed in the posterior gutters. 15 round ZAC drain inserted. The incision was then closed with 1 Vicryl the fascia 2-0 Vicryl subcutaneously and 4 Monocryl for final skin closure. Steri-Strip sterile dressings placed. Patient will continue PACU stable condition. Please note Fidel Batista was present at the entire procedure involved the patient positioning complex portions of the surgery and f inal skin closure. Lastly spinal cord monitoring was utilized at the procedure no changes noted. I attest to the content of the Intraoperative Record and any orders documented t herein. Any exceptions are noted below.
--- NOTE | 2020-06-09 15:37 | Fluoroscopy Report ---
FL lumbar spine 2-3V HISTORY: 65 years-old Male L3-L4 DECOMPRESSION FUSION L4-S1 HW REMOVAL chronic low back pain COMPARISON: Fluoroscopic images of the lumbar spine 06/11/2019 TECHNIQUE: 3 spot fluoroscopic images of the lumbar spine were obtained utilizing 11.6 seconds fluoro scopy time FINDINGS: Posterior interbody darshana and screw fusion at L3-S1. Discectomy changes at L3-L4 and L4-L5. Alignment a ppears satisfactory. Intervertebral disc space narrowing at L5-S1 redemonstrated. No opaque foreign b lili identified. IMPRESSION: Fluoroscopic assistance as above. ACT 112: Negative or not required by law. The above report was generated using voice recognition software. It may contain grammatical, syntax o r spelling errors. Electronically signed by: Giovanny Zavala M.D. 06/09/2020 3:36 PM
[2020-06-09] MEDS: LACTATED RINGER'S 1,000 ML IV SCH (17:15)
[2020-06-09] MEDS ORDERED: MAGNESIUM HYDROXIDE SUSP 30 ML UDC PO PRN (17:26)
[2020-06-09] MEDS ORDERED: hydrOXYzine HCl 25 MG TAB PO PRN (17:26)
[2020-06-09] MEDS ORDERED: ONDANSETRON 4 MG OD TAB PO PRN (17:26)
[2020-06-09] MEDS ORDERED: diphenhydrAMINE Capsule 25 MG CAP PO PRN (17:26)
[2020-06-09] MEDS ORDERED: SOD PHOSPHATE/SOD BIPHOSPHATE ENEMA 132 ML BTL PR PRN (17:26)
[2020-06-09] MEDS ORDERED: DO NOT ADMINISTER FLU VACCINE PRN (17:26)
[2020-06-09] MEDS ORDERED: ALUMINUM/MAGNESIUM SUSP 30 ML UDC PO PRN (17:26)
[2020-06-09] MEDS ORDERED: HYDROmorphone INJ 0.5 MG/0.5 ML SYR IV PRN (17:26)
[2020-06-09] MEDS ORDERED: oxyCODONE HCL IR 5 MG TAB (IMMEDIATE RELEASE) PO PRN (17:26)
[2020-06-09] MEDS ORDERED: DO NOT ADMINISTER PNEUMOCOCCAL VACCINE PRN (17:26)
[2020-06-09] MEDS ORDERED: METOCLOPRAMIDE HCL INJ 5 MG/ML 2 ML VIAL IV PRN (17:26)
[2020-06-09] MEDS ORDERED: NALOXONE HCL 0.4 MG/1 ML VIAL/CARP IV PRN (17:26)
[2020-06-09] MEDS ORDERED: bisacodyL 10 MG SUPP PR PRN (17:26)
[2020-06-09] MEDS ORDERED: LORazepam 0.5 MG/1 ML VIAL IV PRN (17:26)
[2020-06-09] MEDS ORDERED: ACETAMINOPHEN 500 MG TAB PO PRN (17:26)
[2020-06-09] MEDS ORDERED: LORazepam 0.5 MG TAB PO PRN (17:26)
[2020-06-09] MEDS ORDERED: ACETAMINOPHEN 1,000 MG/100 ML VIAL IV PRN (17:26)
[2020-06-09] MEDS ORDERED: FAMOTIDINE 20 MG TAB PO PRN (17:26)
[2020-06-09] MEDS ORDERED: HYDROmorphone INJ 1 MG/ML SYRINGE IV PRN (17:26)
[2020-06-09] MEDS: KETOROLAC TROMETHAMINE 15 MG/ML VIAL IV SCH ×2 (17:50→23:13)
[2020-06-09] MEDS: CLINDAMYCIN 600 MG in DEXTROSE 5% 50 ML IV SCH (21:19)
[2020-06-09] MEDS: DOCUSATE SODIUM/SENNA 50/8.6MG TAB PO SCH (21:19)
[2020-06-10] MEDS: LACTATED RINGER'S 1,000 ML IV SCH (00:31)
[2020-06-10] MEDS: CLINDAMYCIN 600 MG in DEXTROSE 5% 50 ML IV SCH (05:38)
[2020-06-10] MEDS: POLYETHYLENE (MIRALAX) 17 GM PACK PO SCH ×4 (05:39→23:15)
[2020-06-10] MEDS: KETOROLAC TROMETHAMINE 15 MG/ML VIAL IV SCH ×2 (05:39→13:11)
[2020-06-10 08:03] LABS: Basophils # (auto) 0.01 K/uL (0-0.2); Basophils % (auto) 0.1 %; Eosinophils # (auto) 0.02 K/uL (0-0.5); Eosinophils % (auto) 0.2 %; Hematocrit (blood only) 34.8 % (42-52); Hemoglobin 11.9 g/dL (14.0-18.0); Immature Granulocytes # (auto) 0.04 K/uL (0.00-0.02); Immature Granulocytes % (auto) 0.3 %; Lymphocytes % (auto) 15.9 %; Mean Corpuscular Hemoglobin 30.7 pg (25-34); Mean Corpuscular Hgb Conc 34.2 g/dL (32-36); Mean Corpuscular Volume 89.7 fL (80-100); Mean Platelet Volume 11.7 fL (7.4-10.4); Monocytes # (auto) 1.51 K/uL (0.11-0.59); Monocytes % (auto) 11.4 %; Neutrophils # (auto) 9.53 K/uL (1.4-6.5); Neutrophils % (auto) 72.1 %; Platelet Count 230 K/uL (130-400); RDW Coefficient of Variation 13.2 % (11.5-14.5); RDW Standard Deviation 43.2 fL (36.4-46.3); Red Blood Count 3.88 M/uL (4.7-6.1); White Blood Count 13.21 K/uL (4.8-10.8)
[2020-06-10 08:29] LABS: BUN Creatinine Ratio 18.7 (10-20); Calcium 8.7 mg/dl (8.5-10.1); Creatinine Clr Calc Pharmacy 94.6 ml/min; Est GFR (African American) 102.9; Est GFR (Non-African American) 88.8; Potassium 4.2 mmol/L (3.5-5.1)
--- NOTE | 2020-06-10 08:31 | Orthopedic Progress Note ---
Date of Service June 10, 2020 Assessment & Plan (1) Neurogenic claudication due to lumbar spinal stenosis: Patient is postoperative day 1 lumbar decompression and fusion of L3-4 with removal of hardware L4-S1. We will continue with pain control today. Maintain ZAC drain and dressing. Start physical therapy. DVT prophylaxis is in the form of teds and SCDs. Continue with aggressive bowel regimen. Anticipate discharge home within the next 24 to 48 hours. Admission and Anticipated Discharge Date Admission Date: June 09, 2020 Supervising Physician Co-Signing Physician Notes Dr. Kermit Nolan Subjective Mr. Grey is postoperative day 1 removal of hardware L4-S1, decompression fusion L3-4. He had an uneventful evening. Pain is well controlled. Denies radicular leg pain. ZAC drain output last shift was 100 cc H&H is morning are 11.9 and 34.8 respectively. Review of Systems Review of Systems: All systems reviewed & are unremarkable except as noted in HPI & below Physical Exam Physical Exam: Alert and oriented x3. No acute distress. He sitting in a chair eating breakfast. Lumbar dressing is clean dry and intact. Calves soft nontender bilaterally. MADIHA hose and SCDs intact bilaterally. Strength is 5 5 bilateral EHL, dorsiflexion, plantarflexion, quadriceps, hamstrings. Constitutional: WD/WN, vitals as above Eyes: normal visual hayes by confrontation ENMT: external ear and nose normal, oropharynx normal Neck: normal visual inspection Respiratory: normal respiratory effort Cardiovascular: Extremities: normal capillary refill Chest (Breasts): Chest: normal inspection of chest Gastrointestinal (Abdomen): Inspection/Auscultation: abdomen normal to inspection Musculoskeletal: Extremities: extremities normal to inspection Skin: no rashes, warm and dry Neurologic: normal touch/pain/proprioception and moves all extremities Psychiatric: A+Ox3, euthymic affect Results & Data ([facility]) Vital Signs (Past 12 Hours) Vital Signs Temp Pulse Resp BP Pulse Ox 06/10/20 07:06 36.5 C 66 16 130/81 99 06/10/20 02:52 36.6 C 59 L 18 107/68 98 06/09/20 21:47 36.6 C 72 18 146/87 H 98
[2020-06-10] MEDS ORDERED: LOSARTAN POTASSIUM 50 MG TAB PO SCH (09:00)
--- NOTE | 2020-06-10 15:10 | Hospitalist Consultation ---
Date of Consultation June 10, 2020 Assessment & Plan (1) Neurogenic claudication due to lumbar spinal stenosis: S/p lumbar fusion of L3-4 on 06/[address] Nolan. - Doing well post-operatively. - Now with expected acute blood loss anemia. Will give some IV iron. - Post-operative care and DVT ppx per primary team. (2) Hypertension: BP today is 130/75. - Continue home losartan 50 mg PO daily - Monitor (3) DVT prophylaxis: SCDs and TEDs per primary team. Given medical stability, Hospital Medicine team will sign off. Please re-consult with any questions or concerns. Thank you for letting us assist in the care of this patient! History of Present Illness Attending Physician: Kermit Nolan DO History of Present Illness 65yo M w/ hx of HTN who presents as a routine consult after lumbar fusion of L3- 4 on 06/[address] Nolan. The patient reports he is doing well and has minimal pain today. He has been up and walking. He was having neurogenic claudication before the surgery which required surgical management. Allergies Allergy/AdvReac Type Severity Reaction Status Date / Time cefuroxime [From Ceftin] Allergy Mild Lip Verified 06/09/20 11:46 tingling Home Medications Medication Instructions Recorded Confirmed Type Glucosamine Chondroitin 3 cap PO DAILY 05/21/19 06/09/20 History cholecalciferol (vitamin D3) 10,000 unit PO BID 05/21/19 06/09/20 History [Vitamin D3] [id number]-gf-1-[id number]-[id number]-ast 1 cap PO BID 05/21/19 06/09/20 History [krill oil] losartan [Cozaar] 100 mg PO QAM 05/21/19 06/09/20 History turmeric root extract 500 mg PO HS 05/21/19 06/09/20 History Patient History Medical History Chronic back pain B/L LE radiation GERD (gastroesophageal reflux disease) hx Hypertension Surgical History History of cardiac cath x2 (most recent 10+ years ago) > no stents History of colonoscopy Multiple History of esophagogastroduodenoscopy (EGD) History of lumbar fusion L4-S1 decompression/fusion: 06/11/19: Grade view 1, MAC 2.5, ETT 7.5 at [facility] History of repair of rotator cuff Hx of shoulder surgery R/L Status post right foot surgery Family History Father Family history of diabetes mellitus Family hx of colon cancer Social History Smoking Status: Former smoker Cigarettes Per Day: Quit 20+ years ago; Second Hand Exposure: No; Do You Dip or Chew Tobacco: No; Tobacco Cessation Education Requested by Patient: No Hx Alcohol Use: Yes Alcohol type: beer and hard liquor Hx Substance Use: No Preferred Language: Chadian Communication Ability: Effective 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 Beliefs That Will Affect Care: None marital status: Current Living Situation: Spouse Other Information That Helps Us Care for You: No Feels Safe at Home: Yes Safety Concerns: Feels Safe At This Time Assistive Devices: Walker Review of Systems Review of Systems: All systems reviewed & are unremarkable except as noted in HPI & below Physical Exam Constitutional: WD/WN, vitals as above Eyes: EOM intact bilaterally; no conjunctival abnormality ENMT: external ear and nose normal, oropharynx normal Neck: trachea midline, no thyromegaly normal visual inspection Respiratory: normal respiratory effort, lungs clear to auscultation no respiratory distress Cardiovascular: RRR, no murmur, no edema Gastrointestinal (Abdomen): Inspection/Auscultation: abdomen normal to inspection; abdomen not distended Musculoskeletal: no cyanosis or clubbing, extremities motor strength 5/5 Skin: no rashes, warm and dry Neurologic: moves all extremities and awake Psychiatric: Orientation: alert, oriented to person and cooperative Results & Data Results & Data ([facility]) Vital Signs (Past 12 Hours) Vital Signs Temp Pulse Resp BP BP Pulse Ox 06/10/20 14:51 36.6 C 74 16 129/76 98 06/10/20 11:33 36.6 C 65 16 133/76 99 06/10/20 07:06 36.5 C 66 16 130/81 99 PG Care Time/CCT Total # of Minutes Spent Total Time Spent with Patient: Total time spent is greater than 50% in coordination of care (as documented) at patient's floor/unit and/or counseling patient: Coding Level of Care Code 35096 Inpt Consult Level 3 Diagnoses Neurogenic claudication due to lumbar spinal stenosis M48.062 Hypertension I10 DVT prophylaxis Z29.9
[2020-06-10] MEDS: IRON SUCROSE 300 MG in SODIUM CHLORIDE 0.9% 250 ML IV SCH (16:03)
[2020-06-10] MEDS: traMADol HCL 50 MG TABLET PO PRN (20:44)
[2020-06-10] MEDS: DOCUSATE SODIUM/SENNA 50/8.6MG TAB PO SCH (20:44)
[2020-06-11] MEDS: POLYETHYLENE (MIRALAX) 17 GM PACK PO SCH (06:17)
[2020-06-11] MEDS: traMADol HCL 50 MG TABLET PO PRN (06:20)
[2020-06-11] MEDS ORDERED: LOSARTAN POTASSIUM 50 MG TAB PO SCH (09:00)
--- NOTE | 2020-06-11 09:58 | Discharge Summary ---
Date of Service June 11, 2020 Admission HPI Per Admitting Provider This is a 65-year-old male well-known to me the presents with marked decline in status with consistent back and bilateral leg pain. Failing course of nonoperative care is here for surgical invention. Admission Exam (Per Admitting) Constitutional WD/WN, vitals as above Eyes normal visual haeys by confrontation ENMT external ear and nose normal, oropharynx normal Neck normal visual inspection Respiratory normal respiratory effort Cardiovascular Extremities: normal capillary refill Chest (Breasts) Chest: normal inspection of chest Gastrointestinal (Abdomen) Inspection/Auscultation: abdomen normal to inspection Musculoskeletal Extremities: extremities normal to inspection Skin no rashes, warm and dry Neurologic normal touch/pain/proprioception and moves all extremities Psychiatric A+Ox3, euthymic affect Discharge Data Consultations 06/09/20 17:26 Consult Hospitalist Routine Procedures Performed Operation Date: 06/09/20 13:00 Actual Procedures p L3-L4 Decompression Fusion, interbody cage at L3-L4, Spinal Cord Monitoring(Not Applicable) - Kermit Nolan DO s L4-S1 Hardware Removal,(Not Applicable) - Kermit Nolan DO Hospital Course (1) Neurogenic claudication due to lumbar spinal stenosis: Pt had an uneventful hospital course. HE was discharged home on POD #2. Pain was controlled. He progressed with PT daily. Lab values were stable. Discharge Instructions ACTIVITY RECOMMENDATIONS: SELF CARE INSTRUCTIONS AFTER THORACIC/LUMBAR FUSIONS 1. You may walk to your tolerance. It is good exercise for your legs and back. Expect some back and intermittent leg aches and pains. 2. You may perform "counter-top" level activities (make a sandwich, tasha with a project, etc.). 3. No bending or lifting of more than 10 pounds or back twisting of any nature (roll like a log when turning in bed). 4. You may ride in a car for 20-30 minutes at a time. No driving until after your first visit with your doctor. 5. Frequent changes of position and restricting sitting to 30 minutes at a time will help limit the amount of back spasms and stiffness you may experience. 6. You may discontinue the use of ambulatory aids (cane, crutches, etc.) once your strength and confidence allow. 7. You may vending stand supervisor the shower and let water strike your incision when you arrive home at least once daily. Do not take a tub bath, sit in a hot tub or go into a swimming pool until after your first recheck in the office. SPECIAL CARE INSTRUCTIONS: VERY IMPORTANT TO READ AND REVIEW A. Your surgical incision has been closed with a cosmetic suture under the skin that will dissolve in about 6 weeks. In 14 days, you can use a pair of clean scissors and cut the suture that is left outside of the skin at the ends of your incision. 1. The small skin tapes can be removed 7 days after surgery if they have not fallen off by that point. 2. You may keep the wound open to air as much as possible to promote healing after post-op day number 5 unless told otherwise by your doctor. 3. If you think the wound looks like it is becoming infected (redness or worsening drainage) and/or you are experiencing fever, chill or worsening back pain and muscle spasms, contact the office so that we may evaluate you as soon as possible. B. Complications are uncommon, but please contact us if you have any signs or symptoms of: 1. wound infection (fever higher than 102.5 degrees F, redness, separation of wound, drainage, or increasing pain from the incision) 2. blood clots in legs (pain, swelling, redness and warmth in legs) 3. urinary tract infection (fever higher than 102.5 degrees F, burning upon urination or increased frequency of urination) 4. nerve problems (inability to walk on your toes or heels, numbness, loss of bowel or bladder control) 5. any other symptoms that concern you C. Please call the office at if you have any concerns or questions about your operation or recovery. D. No smoking! Smoking drastically decreases the chance of a solid fusion. E. Do not take any anti-inflammatory medications (Indocin, Advil, Motrin, Aspirin, Naprosyn, etc.) as these may inhibit the chance of a solid fusion. Tylenol is okay to take for pain. MANAGING PAIN AFTER SPINAL SURGERY 1. Narcotic medication is intended for short-term use and will be provided for surgical pain. Surgical pain usually lasts for a period of 4-6 weeks. Narcotic medication includes Percocet, Vicodin, Darvocet, Tylenol #3 or Lortab. 2. Longer-term pain is more appropriately treated with non-narcotic medication such as Tylenol ES. 3. Muscle spasm is not appropriately treated with narcotics. Muscle relaxers such as Soma, Flexeril or Skelaxin can be used along with Tylenol ES. 4. Remember that we all live with some "aches and pains". This is not unusual or uncommon after an injury or as we get older. a. Back pain is expected and may include muscle spasms for 4 to 6 weeks after surgery. The pain should gradually improve. If the pain worsens for no apparent reason, please contact the office. b. Intermittent leg pain may also be experienced and should not be concerned about unless it worsens for no apparent reason. If so, please contact the office. 5. We will provide appropriate medication within the normal guidelines of their prescribed use. We will also be very cautious and aware of potential abuse and extended duration of patients' medication needs. a. Pain medications are for your comfort and to assist with sleep and rest so that the tissue can heal. They are not provided in order to return to normal activity and should not be used through the day. To do so or worsening pain at night can result from ongoing tissue damage and development of tolerance to the prescribed medicine. 6. Please allow 2-3 days to process refills. Prescriptions will not be mailed but must be picked up at the office. FOLLOW UP VISIT: Keep your scheduled follow-up appointment. Any questions, please call the office at . Supervising Physician Co-Signing Physician Notes Dr. Kermit Nolan
[2020-06-11] MEDS: IRON SUCROSE 300 MG in SODIUM CHLORIDE 0.9% 250 ML IV SCH (10:48)
== END 2020-06-11 11:41 | disposition home or self-care (01) | DRG 455 ==
LOC: ASU 11:05 → 3E 15:42